=== PATIENT | female | born 1990 | race Two or more races ===

== ENCOUNTER → 2017-07-29 | Outpatient (REF) | payer OTHER ==
[~2017-07-29] MED LIST: AUGM875T28 PO; BACT800T5 PO; PERCOCET PO; TYLE325T5 PO; ZYVO100T PO
== END ==
LOC: M SFHCLERA 11:46
PROVIDERS: ATTEND Dermatology
DX: D22.61 Melanocytic nevi of right upper limb, including shoulder (principal)

== ENCOUNTER → 2019-10-07 | Outpatient (REF) | payer OTHER ==
[~2019-10-07] MED LIST changes: -ZYVO100T PO; +ZYVO1TAB PO
[2019-10-07 13:15] LABS: CHLAMYDIA DNA AMPLIFICATION NEGATIVE (NEGATIVE); GC DNA AMPLIFICATION NEGATIVE (NEGATIVE)
== END ==
LOC: M SFHCLERA 09:06
PROVIDERS: ATTEND Family Medicine
DX: Z97.5 Presence of (intrauterine) contraceptive device (principal)

== ENCOUNTER → 2020-06-10 | Outpatient (REF) | payer OTHER | LOC: M LAB REF 17:26 | PROVIDERS: ATTEND Nurse Practitioner Women's Health | DX: Z12.4 Encounter for screening for malignant neoplasm of cervix (principal) ==